=== PATIENT | female | born 1995 | race Caucasian/White ===

== ENCOUNTER 2016-08-03 12:06 | Emergency (ER) | payer OTHER ==
[~2016-08-03] VITALS: Ht 157.5 cm; Wt 61.6 kg
[2016-08-03 12:08] VITALS: TEMP 36.6; Ht 157.5 cm; Wt 61.6 kg
[2016-08-03] MEDS ORDERED: BUPRTAB51 PO (12:52)
[2016-08-03] MEDS ORDERED: BCPILLS PO (12:52)
--- NOTE | 2016-08-03 12:56 | DIAGNOSTIC IMAGING REPORT ---
HEAD CT NONCONTRAST CT DOSE: HISTORY: concussive symptoms TECHNIQUE: Multiaxial CT images of the head were performed without the use of intravenous contrast. Automated exposure control was utilized for this study. Comparison: None. Findings: The paranasal sinuses and mastoid air cells are clear. The calvarium and skull base are intact. The ventricles and sulci are within normal limits. There is no mass, hematoma, midline shift, or acute infarct. Impression: No acute intracranial abnormality. Electronically signed by: Olvin James M.D. 08/03/2016 12:55 PM Dictated Date/Time: 08/03/2016 12:50 PM
--- NOTE | 2016-08-03 12:57 | DIAGNOSTIC IMAGING REPORT ---
CT FACIAL BONES-MXILLOFAC WITHOUT CT DOSE: 720.17 mGy.cm CLINICAL HISTORY: Left facial pain status post trauma COMPARISON STUDY: No previous studies for comparison. TECHNIQUE: Helical images were acquired in the transverse plane. The study was reviewed and analyzed on the independent 3-D workstation. The pterygoid plates appear intact. The zygomatic arches appear intact. The globes appear intact. There is no evidence of orbital emphysema. The orbital santillan and floor appear intact. The mandibular condyles appear intact. IMPRESSION: No facial fractures identified. Electronically signed by: Chavo Rich M.D. 08/03/2016 12:56 PM Dictated Date/Time: 08/03/2016 12:53 PM
[2016-08-03 13:18] VITALS: BP 104/70; PULSE 64; O2SAT 99
--- NOTE | 2016-08-04 10:30 | EMERGENCY ROOM VISIT NOTE ---
ED Visit Note First contact with patient: 12:14 Chief Complaint: Concussion. History of Present Illness: Ms. Iglesias is a 20-year-old white female who ambulates into the ED complaining of a possible concussion and facial pain. Patient seen at the [facility] and was referred to the ED for head injury. Patient reports on Wednesday, 2 days ago, she was playing football when she was struck in the face by another opponent's head. She reports at the time of the injury she has had no loss of consciousness but over the last 2 days she has been having multiple concussion symptoms and facial pain. Currently she is complaining of a mild headache over the bifrontal area. She is unable to describe this discomfort. She rates this discomfort 5/10. The pain is nonradiating. She has not identified any aggravating or alleviating factors related to the pain. She has taken one dose of Tylenol without relief of her discomfort. Associated with her pain she also reports in the area where she was struck over the left mandible she is also having pain in this area. Additionally she reports that she has been feeling slightly dizzy, light sensitive and mild nausea without vomiting. She denies visual changes, hearing changes, difficulty speaking, difficulty swallowing, difficulty ambulating/coordinating body movements, neck pain, back pain, chest pain, shortness of breath, abdominal pain, extremity weakness/ numbness/tingling. Review of Systems: As noted above in history of present illness. All body systems were reviewed and found to be negative as noted above. Past Medical History: Asthma, bronchitis, pneumonia, GERD, gastric ulcers, anterior cruciate ligament repair and wisdom teeth extraction. Current Medications: Wellbutrin, control. Allergies to Medications: Reglan, ascorbate, biotin, folic acid, niacin, Compazine, promethazine, pyridoxine, unspecified antibiotic ophthalmic drops. Social History: Patient is currently University student; she feels safe in her home environment; she denies tobacco use and admits to alcohol use. Physical Examination: Vital Signs: Date Time Temp Pulse Resp B/P Pulse Ox O2 Delivery O2 Flow Rate FiO2 08/03/16 13:18 64 14 104/70 99 08/03/16 12:08 36.6 96 18 111/72 100 Room Air GENERAL: 20-year-old female in mild distress due to pain, nontoxic-appearing, afebrile and hemodynamically stable. NEUROLOGICAL: Awake, alert and oriented to person, place and time. Answering questions appropriately and following commands. Normal gait. Good hand eye coordination. No focal motor or sensory deficits. Romberg test negative. Pronator drift test negative. Normal rapid alternate movements of the hands and fingers. Normal heel larios test. Good short-term and long-term recall. Difficulty spelling and counting backwards. SKIN: Warm, dry and pink. Patient does have a early contusion to the left side of the face over the angle of the jaw extending superiorly to the postauricular area but not involving the mastoid process. In this area as there is also mild swelling. HEENT: Atraumatic and normocephalic. Skull: No bony deformity, depressions or tenderness. No raccoon's eyes or urbano signs. No drainage from the ears or the nostril; no hemotympanum. Face please note SKIN above. PERRLA. EOMI without nystagmus. Sclera white and conjunctiva pink. No malocclusion. No intraoral trauma. Airway patent. Speech is normal and clear. Trachea midline. No jugular venous distention. BACK: No tenderness over the bony cervical and thoracic spine. Full range of motion of the cervical spine. No CVA tenderness. THORAX: Lungs sounds are clear to auscultation and equal bilaterally with symmetrical chest wall. ABDOMEN: Flat, soft and nontender. Positive bowel sounds in all quadrants. No guarding, rigidity or organomegaly. EXTREMITIES: Moves all extremities well on command and with purpose. All distal neurovascular statuses are intact and equal bilaterally. 5/5 muscle strength in flexion, extension, abduction and abduction of the shoulders, flexion and extension of the elbows, pronation and supination the forearms, flexion, extension and radial and ulnar deviation of the wrist and metal can inspector strength. ED Course: Patient is assessed as noted above. Urine : Negative. Head CT: Was reviewed by myself and read by the radiologist showing no acute intracranial abnormalities or skull fractures. Facial CT: Was reviewed by myself and read by the radiologist showing no facial fractures or abnormalities. Patient was offered pain medications and refused. Patient was educated about tonight's findings and instructed on her treatment plan; she verbalizes understanding and agreement with this plan. Clinical Impression: Concussion. Facial contusion. Disposition: Patient discharged home in stable condition; prior to departure she was reassessed and subjectively reported she was feeling the same. Plan: Patient was encouraged to alternate ibuprofen and acetaminophen as needed for pain. Patient was encouraged use ice on her facial pain for 5 times a day for 20 minutes. Patient was encouraged to avoid alcohol use for 48 hours. Patient was educated on signs of worsening head injury. Patient was encouraged to consider liquid or mechanical soft diet and to resolution of facial pain. Patient was encouraged to follow-up with [facility] for care for concussion. Patient was encouraged to follow-up at [facility] to assist with her concerns about classes and classwork; after patient was discharged I received a call from her father requesting that I provided note that would excuse her from class. I did have a lengthy conversation with the father concerning college classes about the responsibility of the student. 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 Patient was encouraged return to the ED for worsening sign of head injury, worsening facial pain or any new/concerning symptoms.
== END 2016-08-03 13:19 | disposition home or self-care (01) ==
LOC: C.EDB 12:07 → C.EDD 13:19
DX: S06.0X9A Concussion with loss of consciousness of unspecified duration, initial encounter (principal); S00.83XA Contusion of other part of head, initial encounter; W50.0XXA Accidental hit or strike by another person, initial encounter; Y93.61 Activity, american tackle football; K21.9 Gastro-esophageal reflux disease without esophagitis; J45.909 Unspecified asthma, uncomplicated; Z87.11 Personal history of peptic ulcer disease; Z87.828 Personal history of other (healed) physical injury and trauma; Z79.899 Other long term (current) drug therapy; Z88.8 Allergy status to other drugs, medicaments and biological substances

== ENCOUNTER → 2016-10-14 | Outpatient (CLI) | payer OTHER ==
[~2016-10-14] MED LIST: BCPILLS PO; BUPRTAB51 PO
== END | disposition home or self-care (01) ==
LOC: C.PAPS 08:55
PROVIDERS: ATTEND Physician Assistant
DX: Z01.419 Encounter for gynecological examination (general) (routine) without abnormal findings (principal)

== ENCOUNTER → 2016-10-14 | Outpatient (CLI) | payer OTHER ==
[2016-10-16 20:51] LABS: CHLAMYDIA TRACH RNA*** NOT DETECTED (NOT DETECTED); GC (NEIS GONORRHOEAE)RNA** NOT DETECTED (NOT DETECTED)
== END | disposition home or self-care (01) ==
LOC: C.LABSPEC 10:19
PROVIDERS: ATTEND Physician Assistant
DX: Z01.419 Encounter for gynecological examination (general) (routine) without abnormal findings (principal)